=== PATIENT | female | born 1985 | race African-American/Black ===

== ENCOUNTER 2017-10-10 13:40 | Observation (INO) | payer BC, MEDICARE ==
[~2017-10-10] VITALS: Ht 165.1 cm; Wt 92.5 kg
== END 2017-10-10 14:55 | disposition home or self-care (01) ==
LOC: SPU 13:40
PROVIDERS: ADMIT Specialist; ATTEND Specialist
DX: O26.893 Other specified pregnancy related conditions, third trimester (principal); R10.9 Unspecified abdominal pain; Z3A.36 36 weeks gestation of pregnancy
CPT/HCPCS: 81002; G0378

== ENCOUNTER 2018-03-22 14:11 | Emergency (ER) | payer MEDICARE ==
[~2018-03-22] VITALS: Ht 165.1 cm; Wt 81.6 kg
[2018-03-22 14:18] VITALS: BP_SYST 149
[2018-03-22] MEDS ORDERED: KETOROLAC TROMETHAMINE 60 MG/2 ML VIAL IM ONE (15:45)
[2018-03-22 16:40] VITALS: BP_SYST 130
== END 2018-03-22 16:40 | disposition home or self-care (01) ==
LOC: SED 14:11
DX: M79.661 Pain in right lower leg (principal); R03.0 Elevated blood-pressure reading, without diagnosis of hypertension; G43.909 Migraine, unspecified, not intractable, without status migrainosus; F41.9 Anxiety disorder, unspecified; D64.9 Anemia, unspecified
CPT/HCPCS: 93971; 96372; 99284; J1885

== ENCOUNTER 2019-12-24 02:32 | Emergency (ER) | payer BC, MEDICARE ==
[~2019-12-24] VITALS: Ht 162.6 cm; Wt 87.1 kg
[2019-12-24 02:35] VITALS: BP_SYST 117
[2019-12-24 04:26] LABS: BILIRUBIN,URINE NEGATIVE (NEGATIVE); BLOOD, URINE 1+ (NEGATIVE); COLOR,URINE YELLOW (YELLOW); GLUCOSE,URINE NEGATIVE (NEGATIVE); KETONES,URINE NEGATIVE (NEGATIVE); LEUKOCYTE ESTERASE ,URINE TRACE (NEGATIVE); NITRITE, URINE POSITIVE (NEGATIVE); PH,URINE 6.5 (5.0-8.0); PROTEIN URINE NEGATIVE (NEGATIVE); UROBILINOGEN,URINE 0.2 (0.2-1.0)
[2019-12-24 04:35] LABS: BASOPHILS # (AUTO) 0.1 K/uL (0.0-0.2); BASOPHILS % (AUTO) 0.8 % (0.0-2.0); EOSINOPHILS # (AUTO) 0.1 K/uL (0.0-0.4); EOSINOPHILS % (AUTO) 1.3 % (0.0-4.0); LYMPHOCYTES # (AUTO) 1.5 K/uL (1.0-5.5); LYMPHOCYTES % (AUTO) 13.4 % (20.5-51.5); MEAN CORPUSCULAR HEMOGLOBIN 24 pg (27-31); MEAN CORPUSCULAR HGB CONC 32 % (32-36); MEAN CORPUSCULAR VOLUME 75 fL (79.0-98.0); MONOCYTES # (AUTO) 0.8 K/uL (0.0-1.0); MONOCYTES % (AUTO) 6.9 % (1.7-9.3); NEUTROPHILS # (AUTO) 8.7 K/uL (1.8-7.7); NEUTROPHILS % (AUTO) 77.6 % (40.0-70.0); PLATELET COUNT (AUTO) 157 K/uL (130-430); RED BLOOD CELL COUNT(AUTO) 4.67 MIL/uL (4.2-6.2); RED CELL DISTRIBUTION WIDTH 15.2 % (9.0-15.0); WHITE BLOOD COUNT (AUTO) 11.3 K/uL (4.8-10.8)
[2019-12-24 04:36] LABS: CALCIUM 8.7 mg/dL (8.4-11.0); CREATININE 0.47 mg/dL (0.55-1.30); POTASSIUM 3.7 mmol/L (3.5-5.1)
[2019-12-24 04:49] LABS: CLARITY/URINE SLIGHTLY HAZY (CLEAR)
[2019-12-24 04:50] LABS: BACTERIA,URINE MANY /HPF (None Seen); MUCUS,URINE 1+ /LPF (None Seen)
[2019-12-24] MEDS ORDERED: AMPICILLIN SODIUM 1 GM in NS 50 ML IV ONE (05:00)
[2019-12-24 05:02] LABS: ALBUMIN 3.1 g/dL (3.4-4.8); TOTAL BILIRUBIN 0.3 mg/dL (0.0-1.0)
[2019-12-24] MEDS ORDERED: AMPICILLIN SODIUM 1 GM VIAL ONE (05:08)
[2019-12-24 05:30] VITALS: BP_SYST 128
== END 2019-12-24 05:30 | disposition home or self-care (01) ==
LOC: SED 02:32
DX: O23.592 Infection of other part of genital tract in pregnancy, second trimester (principal); O26.892 Other specified pregnancy related conditions, second trimester; R10.30 Lower abdominal pain, unspecified; Z3A.14 14 weeks gestation of pregnancy
CPT/HCPCS: 36415; 76805; 80053; 81000; 81025; 84702; 85025; 87040; 87086; 87210; 96365; 99284; J0290

== ENCOUNTER 2020-02-03 09:04 | Emergency (ER) | payer BC ==
[~2020-02-03] VITALS: Ht 162.6 cm; Wt 86.2 kg
[2020-02-03 09:05] VITALS: BP_SYST 121
--- NOTE | 2020-02-03 09:05 | NUR ---
BROUGHT BACK TO BED #7 AND TRIAGED. REPORT GIVEN TO PONCHO
--- NOTE | 2020-02-03 09:07 | NUR ---
Patient arrived in the ED c/o midsternal chest pain with sharp abdominal pain for the last 2 days. Patient is 19 weeks . Denied any shortness of breath. Denied any fevers, chills, nausea or vomiting. Patient is alert and oriented x4, respirations even and unlabored, speaking in full sentences, and ambulating with a steady gait. VSS, pain level 7/10 - not taking any OTC pain medications. Informed of the approximate wait time. Instructed to notify ED staff for any changes in condition or worsening of symptoms. Patient verbalized understanding.
--- NOTE | 2020-02-03 09:19 | NUR ---
ECG done at bedside as ordered by Dr. Santana. Patient tolerated the procedure well. ER Physician given copy of EKG for review.
--- NOTE | 2020-02-03 09:28 | NUR ---
ER Dr. Santana at bedside examining patient.
--- NOTE | 2020-02-03 09:42 | NUR ---
Positive heart tones, heart rate 144. aware.
--- NOTE | 2020-02-03 09:45 | NUR ---
Patient ambulated to the bathroom with a steady gait. Urine specimen collected as ordered by Dr. Santana. Urine tested positive.
--- NOTE | 2020-02-03 09:52 | NUR ---
ER Dr. Santana at bedside re-examining patient and giving discharge instructions.
--- NOTE | 2020-02-03 09:58 | NUR ---
Patient given written and verbal discharge instructions and verbalizes understanding. ER MD discussed with patient the results and treatment provided. Patient in stable condition. ID arm band removed. Rx of Macrobid given. Patient educated on pain management and to follow up with PMD. Pain Scale 0/10. Opportunity for questions provided and answered. Medication side effect fact sheet provided.
== END 2020-02-03 09:58 | disposition home or self-care (01) ==
LOC: SED 09:04
DX: O23.42 Unspecified infection of urinary tract in pregnancy, second trimester (principal); O26.892 Other specified pregnancy related conditions, second trimester; R07.89 Other chest pain; Z3A.19 19 weeks gestation of pregnancy
CPT/HCPCS: 81002; 81025; 93005; 99283

== ENCOUNTER 2020-02-18 16:44 | Observation (INO) | payer BC ==
[~2020-02-18] VITALS: Ht 162.6 cm; Wt 87.1 kg
[2020-02-18 18:40] LABS: BILIRUBIN,URINE NEGATIVE (NEGATIVE); BLOOD, URINE NEGATIVE (NEGATIVE); COLOR,URINE YELLOW (YELLOW); GLUCOSE,URINE NEGATIVE (NEGATIVE); KETONES,URINE TRACE (NEGATIVE); LEUKOCYTE ESTERASE ,URINE 2+ (NEGATIVE); NITRITE, URINE NEGATIVE (NEGATIVE); PH,URINE 6.5 (5.0-8.0); PROTEIN URINE NEGATIVE (NEGATIVE); UROBILINOGEN,URINE 0.2 (0.2-1.0)
[2020-02-18 18:48] LABS: CLARITY/URINE SLIGHTLY HAZY (CLEAR)
[2020-02-18 19:11] LABS: RBC,URINE 0-3 /HPF (0-3)
[2020-02-18 19:12] LABS: BACTERIA,URINE FEW /HPF (None Seen); MUCUS,URINE 2+ /LPF (None Seen)
== END 2020-02-18 20:28 | disposition home or self-care (01) ==
LOC: SPU 16:44
PROVIDERS: ADMIT Specialist; ATTEND Specialist
DX: O26.892 Other specified pregnancy related conditions, second trimester (principal); R10.31 Right lower quadrant pain; Z3A.22 22 weeks gestation of pregnancy
CPT/HCPCS: 81000; 87086; G0378

== ENCOUNTER 2020-03-16 01:20 | Observation (INO) | payer OTHER, BC ==
[2020-03-16 02:38] LABS: BILIRUBIN,URINE NEGATIVE (NEGATIVE); BLOOD, URINE NEGATIVE (NEGATIVE); CLARITY/URINE TURBID (CLEAR); COLOR,URINE YELLOW (YELLOW); GLUCOSE,URINE NEGATIVE (NEGATIVE); KETONES,URINE TRACE (NEGATIVE); LEUKOCYTE ESTERASE ,URINE 3+ (NEGATIVE); NITRITE, URINE NEGATIVE (NEGATIVE); PH,URINE 6.5 (5.0-8.0); PROTEIN URINE 1+ (NEGATIVE); UROBILINOGEN,URINE 0.2 (0.2-1.0)
[2020-03-16 03:37] LABS: BACTERIA,URINE MANY /HPF (None Seen); RBC,URINE 0-3 /HPF (0-3); WBC,URINE 50-80 /HPF (0-3)
[2020-03-16 03:38] LABS: MUCUS,URINE 2+ /LPF (None Seen)
[2020-03-16] MEDS ORDERED: NITROFURANTOIN MONOHYD/M-CRYST 100 MG CAPSULE PO ONE ×2 (04:30→04:56)
== END 2020-03-16 04:55 | disposition home or self-care (01) ==
LOC: SPU 01:20
PROVIDERS: ADMIT Specialist; ATTEND Specialist
DX: O98.812 Other maternal infectious and parasitic diseases complicating pregnancy, second trimester (principal); B37.9 Candidiasis, unspecified; O23.42 Unspecified infection of urinary tract in pregnancy, second trimester; O99.89 Other specified diseases and conditions complicating pregnancy, childbirth and the puerperium; M54.9 Dorsalgia, unspecified; Z3A.25 25 weeks gestation of pregnancy
CPT/HCPCS: 81000; 87086; 87186; G0378

== ENCOUNTER 2020-05-15 11:32 | Observation (INO) | payer OTHER, BC ==
[~2020-05-15] VITALS: Ht 165.1 cm; Wt 99.3 kg
[2020-05-15] MEDS ORDERED: hydrALAZINE HCL 10 MG TABLET PO ONE (12:00)
[2020-05-15] MEDS ORDERED: hydrALAZINE HCL 25 MG TABLET PO ONE ×2 (14:00→22:00)
[2020-05-15 16:18] LABS: BILIRUBIN,URINE NEGATIVE (NEGATIVE); BLOOD, URINE NEGATIVE (NEGATIVE); COLOR,URINE YELLOW (YELLOW); GLUCOSE,URINE NEGATIVE (NEGATIVE); KETONES,URINE NEGATIVE (NEGATIVE); LEUKOCYTE ESTERASE ,URINE 2+ (NEGATIVE); NITRITE, URINE POSITIVE (NEGATIVE); PROTEIN URINE TRACE (NEGATIVE); UROBILINOGEN,URINE 0.2 (0.2-1.0)
[2020-05-15 16:59] LABS: CLARITY/URINE SLIGHTLY CLOUDY (CLEAR)
[2020-05-15 17:06] LABS: BACTERIA,URINE MANY /HPF (None Seen); RBC,URINE 0-3 /HPF (0-3)
[2020-05-15 17:07] LABS: MUCUS,URINE None Seen /LPF (None Seen)
[2020-05-15 19:09] LABS: BARBITURATE, URINE NEGATIVE (NEG <=200); BENZODIAZEPINE, URINE NEGATIVE (NEG <=150); CANNABINOID, URINE NEGATIVE (NEG <=50); COCAINE, URINE NEGATIVE (NEG <=150); METHAMPHETAMINES SCREEN,URINE NEGATIVE (NEG <=500); OPIATE, URINE NEGATIVE (NEG <=100); PHENCYCLIDINE SCREEN,URINE NEGATIVE (NEG <=25); UR TRICYCLIC ANTIDEPRESSANTS NEGATIVE (NEG <=300); URINE AMPHETAMINE NEGATIVE (NEG <=500); URINE METHADONE NEGATIVE (NEG <=200); URINE OXYCODONE SCREEN NEGATIVE (NEG <=100); URINE PROPOXYPHENE SCREEN NEGATIVE (NEG <=300)
[2020-05-15] MEDS ORDERED: BETAMET ACET/BETAMET NA PH 30 MG/5 ML VIAL IM ONE (19:15)
[2020-05-15] MEDS: cephALEXin 500 MG CAPSULE PO SCH (21:01)
[2020-05-15] MEDS: TEMAZEPAM 15 MG CAPSULE PO SCH (21:03)
[2020-05-15] MEDS: OXYCODONE/ACETAMINOPHEN 5-325 TABLET PO PRN (23:19)
[2020-05-16] MEDS ORDERED: cephALEXin 500 MG CAPSULE PO SCH
[2020-05-16] MEDS: OXYCODONE/ACETAMINOPHEN 5-325 TABLET PO PRN ×5 (04:01→22:50)
[2020-05-16] MEDS ORDERED: hydrALAZINE HCL 25 MG TABLET PO ONE (06:00)
[2020-05-16] MEDS: cephALEXin 500 MG CAPSULE PO SCH ×4 (08:48→21:10)
[2020-05-16] MEDS ORDERED: BETAMET ACET/BETAMET NA PH 30 MG/5 ML VIAL IM ONE (17:00)
[2020-05-16] MEDS: hydrALAZINE HCL 25 MG TABLET PO SCH (18:23)
[2020-05-16] MEDS: TEMAZEPAM 15 MG CAPSULE PO SCH (22:50)
[2020-05-17] MEDS: OXYCODONE/ACETAMINOPHEN 5-325 TABLET PO PRN ×2 (02:11→06:07)
[2020-05-17] MEDS: hydrALAZINE HCL 25 MG TABLET PO SCH (06:07)
[2020-05-17] MEDS: cephALEXin 500 MG CAPSULE PO SCH (09:04)
== END 2020-05-17 13:40 | disposition home or self-care (01) ==
LOC: SPU 11:32
PROVIDERS: ADMIT Specialist; ATTEND Specialist
DX: O99.89 Other specified diseases and conditions complicating pregnancy, childbirth and the puerperium (principal); M54.5 Low back pain; R03.0 Elevated blood-pressure reading, without diagnosis of hypertension; Z79.899 Other long term (current) drug therapy; Z3A.34 34 weeks gestation of pregnancy
CPT/HCPCS: 76805; 80307; 81000; 87086; 87186; 96372 ×2; G0378; J0702

== ENCOUNTER 2020-06-23 15:14 | Emergency (ER) | payer OTHER, BC ==
[~2020-06-23] VITALS: Ht 167.6 cm; Wt 99.8 kg
[2020-06-23 15:14] VITALS: BP_SYST 126
--- NOTE | 2020-06-23 15:14 | NUR ---
Placed in room 4. Placed on stitcher tape controlled machine, blood pressure machine and pulse oximeter. To gown for exam. Side rails up. Report given to LILIANA Whittington.
[2020-06-23 15:20] VITALS: BP_SYST 141
--- NOTE | 2020-06-23 15:20 | NUR ---
PT IS C/O LEFT SIDED CHEST PAIN, NON RADAITING. DESCRIPES PAIN A SHARP ACHING PAIN. PT DENIES ANY SOB, HEADACHE ANDN/V. PT RESPIRATION IS EVEN AND UNLABORED. NAD NOTED AT THIS TIME. PT RATES PAIN 5/10.
[2020-06-23 15:44] LABS: BASOPHILS # (AUTO) 0.1 K/uL (0.0-0.2); EOSINOPHILS # (AUTO) 0.2 K/uL (0.0-0.4); HEMATOCRIT 29.9 % (36-48); HEMOGLOBIN 9.3 g/dL (12.0-16.0); LYMPHOCYTES # (AUTO) 1.7 K/uL (1.0-5.5); LYMPHOCYTES % (AUTO) 28.6 % (20.5-51.5); MEAN CORPUSCULAR HEMOGLOBIN 23 pg (27-31); MEAN CORPUSCULAR HGB CONC 31 % (32-36); MEAN CORPUSCULAR VOLUME 74 fL (79.0-98.0); MONOCYTES # (AUTO) 0.4 K/uL (0.0-1.0); MONOCYTES % (AUTO) 6.8 % (1.7-9.3); NEUTROPHILS # (AUTO) 3.6 K/uL (1.8-7.7); NEUTROPHILS % (AUTO) 59.6 % (40.0-70.0); PLATELET COUNT (AUTO) 215 K/uL (130-430); RED BLOOD CELL COUNT(AUTO) 4.03 MIL/uL (4.2-6.2); RED CELL DISTRIBUTION WIDTH 15.9 % (9.0-15.0)
[2020-06-23 16:02] LABS: CALCIUM 8.8 mg/dL (8.4-11.0); CREATININE 0.57 mg/dL (0.55-1.30); POTASSIUM 3.3 mmol/L (3.5-5.1)
[2020-06-23 16:10] LABS: ALBUMIN 3.8 g/dL (3.4-4.8); TOTAL BILIRUBIN 0.4 mg/dL (0.0-1.0)
[2020-06-23 16:39] LABS: PROTHROMBIN TIME 10.6 SECS (9.5-12.5)
--- NOTE | 2020-06-23 16:55 | NUR ---
PT WAS GIVEN D/C PAPER WORK AND VERBAILZED UNDERSTANDING OF D/C PAPERWORK. PT RESPIRATION IS EVEN AND UNLABORED. PT IS AAOX4. PT DENIES ANY CHEST PAIN, HEADACHE, AND SOB. PT EDUCATED TO FOLLOW UP WITH [facility] CARE PROVIDER MICHELLE
== END 2020-06-23 16:53 | disposition home or self-care (01) ==
LOC: SED 15:14
DX: R07.82 Intercostal pain (principal)
CPT/HCPCS: 36415; 71045; 80053; 83880; 84484; 85025; 85610-TC; 85730-TC; 93005; 99285

== ENCOUNTER 2020-09-28 23:40 | Emergency (ER) | payer BC, OTHER ==
[~2020-09-28] VITALS: Ht 165.1 cm; Wt 79.4 kg
[2020-09-29 00:20] VITALS: BP_SYST 138
--- NOTE | 2020-09-29 00:22 | NUR ---
Received patient to ER w/ c/o abd pain w/ distention. Patient states pain increases when moving or bending. Introduced self to patient, positioned for comfort, (+) swelling to navel area. Bed to low position sr up, continue to monitor.
[2020-09-29] MEDS ORDERED: MORPHINE 4 MG/ML INJ. SYRINGE IVP ONE ×2 (00:45→04:45)
[2020-09-29] MEDS ORDERED: ONDANSETRON HCL 4 MG/2 ML VIAL IVP ONE ×2 (00:45→04:45)
[2020-09-29] MEDS ORDERED: NACL 0.9% 1,000 ML IV ONE ×2 (00:45→04:45)
--- NOTE | 2020-09-29 01:00 | NUR ---
YARI Valdez at bedside examining patient.
--- NOTE | 2020-09-29 01:15 | NUR ---
Patient medicated as ordered. Will observe for any adverse reaction. bed to low position sr up, continue to monitor.
[2020-09-29 01:17] LABS: BILIRUBIN,URINE NEGATIVE (NEGATIVE); BLOOD, URINE NEGATIVE (NEGATIVE); COLOR,URINE YELLOW (YELLOW); GLUCOSE,URINE NEGATIVE (NEGATIVE); KETONES,URINE NEGATIVE (NEGATIVE); LEUKOCYTE ESTERASE ,URINE NEGATIVE (NEGATIVE); NITRITE, URINE POSITIVE (NEGATIVE); PROTEIN URINE TRACE (NEGATIVE); UROBILINOGEN,URINE 0.2 (0.2-1.0)
[2020-09-29 01:18] LABS: CLARITY/URINE HAZY (CLEAR)
[2020-09-29 01:28] LABS: CALCIUM 8.6 mg/dL (8.4-11.0); CREATININE 0.62 mg/dL (0.55-1.30); POTASSIUM 3.5 mmol/L (3.5-5.1)
[2020-09-29 01:33] LABS: ALBUMIN 3.8 g/dL (3.4-4.8); TOTAL BILIRUBIN 0.2 mg/dL (0.0-1.0)
[2020-09-29 01:34] LABS: PROTHROMBIN TIME 10.4 SECS (9.5-12.5)
[2020-09-29 01:38] LABS: BASOPHILS % (AUTO) 0.6 % (0.0-2.0); EOSINOPHILS # (AUTO) 0.2 K/uL (0.0-0.4); EOSINOPHILS % (AUTO) 2.9 % (0.0-4.0); HEMOGLOBIN 9.1 g/dL (12.0-16.0); LYMPHOCYTES # (AUTO) 3.1 K/uL (1.0-5.5); LYMPHOCYTES % (AUTO) 37.8 % (20.5-51.5); MEAN CORPUSCULAR HEMOGLOBIN 22 pg (27-31); MEAN CORPUSCULAR HGB CONC 31 % (32-36); MEAN CORPUSCULAR VOLUME 69 fL (79.0-98.0); MONOCYTES # (AUTO) 0.5 K/uL (0.0-1.0); MONOCYTES % (AUTO) 6.6 % (1.7-9.3); NEUTROPHILS # (AUTO) 4.3 K/uL (1.8-7.7); NEUTROPHILS % (AUTO) 52.1 % (40.0-70.0); PLATELET COUNT (AUTO) 221 K/uL (130-430); RED BLOOD CELL COUNT(AUTO) 4.19 MIL/uL (4.2-6.2); RED CELL DISTRIBUTION WIDTH 18.3 % (9.0-15.0); WHITE BLOOD COUNT (AUTO) 8.2 K/uL (4.8-10.8)
[2020-09-29] MEDS ORDERED: cefTRIAXone 1 GM in D5W 50 ML IV ONE (01:45)
[2020-09-29 01:55] LABS: BACTERIA,URINE MANY /HPF (None Seen); WBC,URINE 0-3 /HPF (0-3)
[2020-09-29] MEDS ORDERED: cefTRIAXone 1 GM IVPB PREMIX 50 ML IV ONE (02:01)
--- NOTE | 2020-09-29 03:30 | NUR ---
Patient resting quietly. No acute distress noted. Vital signs within normal range. Patient to ct scan via [facility] w/ cycle director. Patient to be medicated w/ toradol upon return. continue to monitor.
[2020-09-29] MEDS ORDERED: KETOROLAC TROMETHAMINE 30 MG VIAL IVP ONE (03:45)
[2020-09-29] MEDS ORDERED: KETOROLAC TROMETHAMINE 30 MG VIAL ONE (03:45)
--- NOTE | 2020-09-29 04:49 | NUR ---
patient medicated as ordered w/ morphine and zofran. given 2nd liter of NS bolus. Iv site patent and intact. Bed to low position sr up, continue to monitor.
[2020-09-29 06:31] VITALS: BP_SYST 128
--- NOTE | 2020-09-29 06:32 | NUR ---
Patient resting quietly. In mild acute distress noted c/o abd pain 03/07. MD informed 2nd to patient requesting more pain medication. positioned patient for comfort and safety w/ bed to low position sr up. continue to monitor. Vital signs within normal range.
--- NOTE | 2020-09-29 06:50 | NUR ---
Patient given written and verbal discharge instructions and verbalizes understanding. ER MD discussed with patient the results and treatment provided. Patient in stable condition. ID arm band removed. IV catheter removed intact and dressing applied, no active bleeding. Rx of Keflex and Apison given. Patient educated on pain management and to follow up with PMD. Pain Scale 7 Opportunity for questions provided and answered. Medication side effect fact sheet provided. Patient states that she is feeling "lightheaded and dizzy" request to rest up a little before she leaves.
--- NOTE | 2020-09-29 07:55 | NUR ---
Patient states she has no one to give her a ride, explained to the patient that she needed a ride home due to the medications in her system and that it was a danger for her to drive. Patient was unable to accept education.
== END 2020-09-29 07:58 | disposition home or self-care (01) ==
LOC: SED 23:40
DX: N20.0 Calculus of kidney (principal); N39.0 Urinary tract infection, site not specified; R10.13 Epigastric pain; G43.909 Migraine, unspecified, not intractable, without status migrainosus; F41.9 Anxiety disorder, unspecified; Z86.2 Personal history of diseases of the blood and blood-forming organs and certain disorders involving the immune mechanism
CPT/HCPCS: 36415; 74176; 76376; 80053; 81000; 82150; 83690; 84703; 85025; 85610; 87040; 87086; 96361; 96365; 96375; 96376; 99291; 99292; J0696; J1885; J2270; J2405; J7030

== ENCOUNTER 2020-12-03 20:47 | Emergency (ER) | payer BC ==
[~2020-12-03] VITALS: Ht 165.1 cm; Wt 77.6 kg
[2020-12-03 20:47] VITALS: BP_SYST 135
--- NOTE | 2020-12-03 20:55 | NUR ---
Patient to ER bed 6 to gown for evaluation. Side rails up. Report given to December.
--- NOTE | 2020-12-03 20:57 | NUR ---
Patient came to ER. C/O abdominal pain x today. Patient have mid abdominal pain, no N/V/D, burning sensation and vaginal pain (per patient reported). A/O, X4, mid upper abdominal pain, pain rate 8/10.
--- NOTE | 2020-12-03 21:00 | NUR ---
ER Dr. Glaser at bedside examining patient.
[2020-12-03 21:29] LABS: BILIRUBIN,URINE NEGATIVE (NEGATIVE); BLOOD, URINE NEGATIVE (NEGATIVE); CLARITY/URINE SL CLOUDY (CLEAR); COLOR,URINE YELLOW (YELLOW); GLUCOSE,URINE NEGATIVE (NEGATIVE); KETONES,URINE NEGATIVE (NEGATIVE); LEUKOCYTE ESTERASE ,URINE TRACE (NEGATIVE); NITRITE, URINE NEGATIVE (NEGATIVE); PROTEIN URINE NEGATIVE (NEGATIVE); UROBILINOGEN,URINE 0.2 (0.2-1.0)
[2020-12-03 21:54] LABS: BACTERIA,URINE MANY /HPF (None Seen); RBC,URINE 0-3 /HPF (0-3)
[2020-12-03 21:55] LABS: MUCUS,URINE None Seen /LPF (None Seen)
--- NOTE | 2020-12-03 22:14 | NUR ---
Pelvic exam performed by Dr. Glaser with LILIANA Moore at bedside for entire examination. Patient tolerated procedure well. Patient assisted to position of comfort after examination.
[2020-12-03] MEDS ORDERED: cephALEXin 500 MG CAPSULE PO ONE (22:15)
[2020-12-03] MEDS ORDERED: metroNIDAZOLE 500 MG TABLET PO ONE (22:15)
[2020-12-03] MEDS ORDERED: METR500T PO (22:22)
[2020-12-03] MEDS ORDERED: CEPH250C PO (22:24)
--- NOTE | 2020-12-03 22:25 | NUR ---
patient medicated as ordered. Will observe for any adverse reaction. Bed to low position sr up, continue to monitor level of comfort.
[2020-12-03 23:00] VITALS: BP_SYST 135
--- NOTE | 2020-12-03 23:00 | NUR ---
Patient given written and verbal discharge instructions and verbalizes understanding. ER MD discussed with patient the results and treatment provided. Patient in stable condition. ID arm band removed. Rx of Keflex and Metronidazole given. Patient educated on pain management and to follow up with PMD. Pain Scale 1/10. Opportunity for questions provided and answered. Medication side effect fact sheet provided.
== END 2020-12-03 23:00 | disposition home or self-care (01) ==
LOC: SED 20:47
DX: N76.0 Acute vaginitis (principal); N39.0 Urinary tract infection, site not specified; F41.9 Anxiety disorder, unspecified; G43.909 Migraine, unspecified, not intractable, without status migrainosus; Z86.2 Personal history of diseases of the blood and blood-forming organs and certain disorders involving the immune mechanism
CPT/HCPCS: 36415; 81000-TC; 81025; 83605; 87040-TC; 87086; 87210-TC; 87491; 87591; 99283

== ENCOUNTER 2021-02-10 18:17 | Emergency (ER) | payer OTHER, BC ==
[~2021-02-10] VITALS: Ht 165.1 cm; Wt 77.1 kg
[~2021-02-10 18:17] MED LIST: CEPH250C PO; METR500T PO
[2021-02-10 18:22] VITALS: BP_SYST 144
[2021-02-10] MEDS ORDERED: ACETAMINOPHEN 500 MG TABLET PO ONE (18:45)
[2021-02-10] MEDS ORDERED: IBUP-1969 PO (19:43)
[2021-02-10] MEDS ORDERED: ACET-2634 PO (19:43)
[2021-02-10 20:05] VITALS: BP_SYST 141
== END 2021-02-10 20:07 | disposition home or self-care (01) ==
LOC: SED 18:17
DX: M54.6 Pain in thoracic spine (principal); Z79.899 Other long term (current) drug therapy; V43.52XA Car driver injured in collision with other type car in traffic accident, initial encounter; Y93.89 Activity, other specified; Y92.89 Other specified places as the place of occurrence of the external cause; Y99.8 Other external cause status
CPT/HCPCS: 99282

== ENCOUNTER 2021-02-12 10:02 | Emergency (ER) | payer BC, OTHER ==
[~2021-02-12] VITALS: Ht 165.1 cm; Wt 77.1 kg
[~2021-02-12 10:02] MED LIST changes: +ACET-2634 PO; +IBUP-1969 PO
[2021-02-12 10:10] VITALS: BP_SYST 119
[2021-02-12 10:31] LABS: BASOPHILS # (AUTO) 0.1 K/uL (0.0-0.2); BASOPHILS % (AUTO) 0.8 % (0.0-2.0)
[2021-02-12 10:38] LABS: EOSINOPHILS # (AUTO) 0.1 K/uL (0.0-0.4); EOSINOPHILS % (AUTO) 1.5 % (0.0-4.0); HEMATOCRIT 27.4 % (36-48); HEMOGLOBIN 8.6 g/dL (12.0-16.0); LYMPHOCYTES # (AUTO) 1.1 K/uL (1.0-5.5); LYMPHOCYTES % (AUTO) 11.5 % (20.5-51.5); MEAN CORPUSCULAR HEMOGLOBIN 21 pg (27-31); MEAN CORPUSCULAR HGB CONC 32 % (32-36); MEAN CORPUSCULAR VOLUME 66 fL (79.0-98.0); MONOCYTES % (AUTO) 11.1 % (1.7-9.3); NEUTROPHILS # (AUTO) 7.1 K/uL (1.8-7.7); NEUTROPHILS % (AUTO) 75.1 % (40.0-70.0); PLATELET COUNT (AUTO) 150 K/uL (130-430); RED BLOOD CELL COUNT(AUTO) 4.15 MIL/uL (4.2-6.2); RED CELL DISTRIBUTION WIDTH 21.6 % (9.0-15.0); WHITE BLOOD COUNT (AUTO) 9.4 K/uL (4.8-10.8)
[2021-02-12 10:54] LABS: CALCIUM 8.5 mg/dL (8.4-11.0); CREATININE 0.59 mg/dL (0.55-1.30); POTASSIUM 3.6 mmol/L (3.5-5.1)
[2021-02-12 11:01] LABS: ALBUMIN 3.5 g/dL (3.4-4.8); TOTAL BILIRUBIN 0.3 mg/dL (0.0-1.0)
[2021-02-12] MEDS ORDERED: HYDR-3917 PO (11:33)
[2021-02-12] MEDS ORDERED: IBUP-1969 PO (11:33)
[2021-02-12 12:04] VITALS: BP_SYST 119
== END 2021-02-12 12:04 | disposition home or self-care (01) ==
LOC: SED 10:02
DX: S20.219A Contusion of unspecified front wall of thorax, initial encounter (principal); F41.9 Anxiety disorder, unspecified; Z79.899 Other long term (current) drug therapy; V49.49XA Driver injured in collision with other motor vehicles in traffic accident, initial encounter; Y93.89 Activity, other specified; Y92.89 Other specified places as the place of occurrence of the external cause; Y99.8 Other external cause status
CPT/HCPCS: 36415; 71045; 80053; 82550; 84484; 84703; 85025; 93005; 99285

== ENCOUNTER 2021-05-12 15:59 | Emergency (ER) | payer BC ==
[~2021-05-12] VITALS: Ht 165.1 cm; Wt 82.6 kg
[~2021-05-12 15:59] MED LIST changes: +HYDR-3917 PO
[2021-05-12 16:36] VITALS: BP_SYST 123
--- NOTE | 2021-05-12 16:36 | NUR ---
Patient triaged and placed in waiting room. VSS and patient appears in no acute distress at this time. Accompanied by SELF, awaiting available bed, and MD notified of need for MSE.
--- NOTE | 2021-05-12 18:52 | NUR ---
PATIENT BROUGHT IN COMPLAINING OF SEROUS FLUID DRAINAGE FROM SURGICAL SITE. PATIENT REPORTS THAT SHE HAD A TUBAL LIGATION REVERSAL ON 05/06/2021 AND TODAY NOTICED THAT THERE WAS DRAINAGE. NO REDNESS OR WARMTH NOTED. DENIES ANY PAIN. REPORTS CALLING SURGEON BUT UNABLE TO GET AHOLD OF HIM.
--- NOTE | 2021-05-12 19:10 | NUR ---
ER Dr. Oliver in triage examining patient.
[2021-05-12 20:05] VITALS: BP_SYST 118
--- NOTE | 2021-05-12 20:05 | NUR ---
Patient given verbal discharge instructions and verbalizes understanding. ER MD discussed with patient the results and treatment provided. Patient in stable condition. ID arm band removed. NO RX given. Patient educated on pain management and to follow up with PMD. Pain Scale 0/10 Opportunity for questions provided and answered.
== END 2021-05-12 20:05 | disposition home or self-care (01) ==
LOC: SED 15:59
DX: L76.34 Postprocedural seroma of skin and subcutaneous tissue following other procedure (principal); Z79.899 Other long term (current) drug therapy
CPT/HCPCS: 99281